=== PATIENT | female | born 1990 | race Caucasian/White ===

== ENCOUNTER 2021-06-25 21:22 | Emergency (ER) | payer OTHER ==
[~2021-06-25] VITALS: Ht 167.6 cm; Wt 113.4 kg
[2021-06-25] MEDS ORDERED: LISINOPRIL10 MG PO (21:29)
[2021-06-25] MEDS ORDERED: MELOXICAM7.5 MG PO (21:29)
[2021-06-26 00:27] VITALS: BP 125/66
--- NOTE | 2021-06-26 09:34 | EKG ---
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: : 1990 Requested By: Chelsie Soto Order Number: [id number] MD: Jaswinder Watson Measurements Intervals [place] Rate: 85 P: 59 W[place]: 147 QRS: 46 QRSD: 89 T: 10 QT: 363 QTc: 432 Interpretive Statements Sinus rhythm Low voltage, precordial leads Baseline wander in lead(s) V5,V6 No previous ECG available for comparison Electronically Signed On 06-26-2021 9:34:42 CDT by Jaswinder Watson [email or web address] <ELECTRONICALLY SIGNED> By: Jaswinder Watson MD, [facility] 06/26/21 0934 29 29 Jaswinder Watson MD, [facility] /EPI
== END 2021-06-26 00:29 | disposition home or self-care (01) ==
LOC: M.ERS 21:22
DX: U07.1 COVID-19 (principal); E86.0 Dehydration; I10 Essential (primary) hypertension; Z79.899 Other long term (current) drug therapy; Z88.0 Allergy status to penicillin